=== PATIENT | male | born 1970 | race Caucasian/White ===

== ENCOUNTER 2018-12-20 19:21 | Emergency (ER) | payer SELFPAY ==
[~2018-12-20] VITALS: Ht 175.3 cm; Wt 77.1 kg
--- NOTE | 2018-12-20 19:40 | NUR ---
PT BIBSELF C/O "FELT LUMP BILAT TESTICLE, R SIDE NOW INFLAMED+PAIN X3 DAYS" -DISCHARGE, -DYSURIA, -ODOR +SEXUALLY ACTIVE ONE PARTNER. PT AOX4. NAD NOTED. RESP EVEN AND UNLABORED. PT IN BED 2. WILL CONTINUE TO MONITOR.
--- NOTE | 2018-12-20 20:06 | NUR ---
URINE COLLECTED AND SENT TO LAB
[2018-12-20 20:13] LABS: APPEARANCE,URINE Clear (CLEAR); BILIRUBIN,URINE Negative (NEGATIVE); BLOOD, URINE Negative Ery/uL (NEGATIVE); COLOR,URINE Yellow (YELLOW); KETONES,URINE Negative (NEGATIVE); LEUKOCYTE ESTERASE ,URINE Trace (NEGATIVE); NITRITE, URINE Negative (NEGATIVE); PH,URINE 5.5 (5.0-8.0); PROTEIN,URINE Negative (NEGATIVE); UGLUCOSE Negative (NEGATIVE); UROBILINOGEN,URINE 0.2 EU/dL (0.2)
[2018-12-20 20:16] LABS: BACTERIA,URINE None seen /HPF (None Seen); RBC,URINE 0-2 /HPF (0-2); SQUAMOUS EPITHELIAL CELL,UR Few /HPF (None Seen); WBC,URINE 0-2 /HPF (0-3)
[2018-12-20 20:26] VITALS: BP 130/79
== END 2018-12-20 21:00 | disposition home or self-care (01) ==
LOC: ER 19:24
DX: N45.1 Epididymitis (principal)
CPT/HCPCS: 76870-TC; 81000-TC; 87491; 87591